=== PATIENT | male | born 1980 | race African-American/Black ===

== ENCOUNTER 2018-01-01 21:06 | Emergency (ER) | payer OTHER ==
[2018-01-01] MEDS: LIDOCAINE 1% MDV 20ML VIAL SC (21:48)
== END 2018-01-01 22:53 | disposition home or self-care (01) ==
LOC: M ED 21:06
DX: S61.011A Laceration without foreign body of right thumb without damage to nail, initial encounter (principal); W26.8XXA Contact with other sharp object(s), not elsewhere classified, initial encounter; Y92.099 Unspecified place in other non-institutional residence as the place of occurrence of the external cause; Y93.9 Activity, unspecified; Y99.9 Unspecified external cause status
CPT/HCPCS: 12001

== ENCOUNTER → 2018-11-17 | Outpatient (REF) | payer OTHER | LOC: M LAB REF 12:20 | PROVIDERS: ATTEND Physician Assistant | DX: J02.9 Acute pharyngitis, unspecified (principal) ==